=== PATIENT | female | born 1995 | race Hispanic/Latino ===

== ENCOUNTER 2022-07-04 10:11 | Inpatient (IN) | payer BC, OTHER ==
[~2022-07-04 10:11] MED LIST: Bupivacaine 0.25% HCL 30 ML VIAL ONE
[2022-07-04] MEDS ORDERED: Diphenoxylate HCl/Atropine Tablet PO PRN (20:46)
[2022-07-04] MEDS ORDERED: Lidocaine 1% (PF) 30 ML VIAL SC PRN (20:46)
[2022-07-04] MEDS ORDERED: HYDROcodone/Acetaminophen 5/325 mg Tablet PO PRN (20:46)
[2022-07-04] MEDS ORDERED: Methylergonovine 0.2 MG/ML VIAL IM PRN (20:46)
[2022-07-04] MEDS ORDERED: Carboprost 250 MCG/ML AMP IM PRN (20:46)
[2022-07-04] MEDS ORDERED: Butorphanol Tartrate 1 MG/ML VIAL SLOW IVP PRN (20:46)
[2022-07-04] MEDS ORDERED: Acetaminophen 500 MG TAB PO PRN (20:46)
[2022-07-04] MEDS ORDERED: Ibuprofen 800 MG TAB PO PRN (20:46)
[2022-07-04] MEDS ORDERED: hydrALAZINE 20 MG/ML VIAL SLOW IVP PRN (20:46)
[2022-07-04] MEDS ORDERED: Misoprostol 200 MCG TAB PR PRN (20:46)
[2022-07-04] MEDS ORDERED: Ondansetron PF 4 MG/2 ML Vial IVP PRN (20:46)
[2022-07-04] MEDS ORDERED: Penicillin G Potassium 5 MILL.UNITS in Sodium Chloride 0.9% 100 ML IVPB SCH (20:46)
[2022-07-04] MEDS ORDERED: Promethazine HCl 25 MG/ML VIAL IM PRN (20:46)
[2022-07-04 20:48] VITALS: BMI 34.0
[2022-07-04] MEDS ORDERED: NS w/ Oxytocin 30 units 500 ML IV SCH (21:00)
[2022-07-04 22:19] LABS: Mean Corpuscular HGB CONC 35.1 g/dL (32.0-36.0); Mean Corpuscular Hemoglobin 31.7 pg (27.0-33.0); Mean Corpuscular Volume 90.2 fl (81.6-98.3); Mean Platelet Volume 11.2 fl (7.4-10.4); Platelet Count 187 10x3/uL (150-450); RBC Distribution Width 13.4 % (11.5-14.5); Red Blood Cell (RBC) Count 3.47 10x6/uL (3.90-5.03); White Blood Cell (WBC) Count 8.9 10x3/uL (3.5-10.5)
[2022-07-04 22:39] LABS: HBSAg Index 0.21 S/CO (0-0.99); Hep B Surf Ag Non-Reactive S/CO (NonReactive); Syphilis Antibody Nonreactive (Nonreactive); Syphilis Antibody Index 0.05 S/CO (<1.00 Non-Reactive)
[2022-07-04 22:53] LABS: SARS-CoV-2 NAA Rapid Test DETECTED (NotDetected)
[2022-07-05] MEDS: Lactated Ringer's 1,000 ML IV SCH ×2 (01:04→08:28)
[2022-07-05] MEDS: Misoprostol 100 MCG TAB PO SCH (06:07)
[2022-07-05] MEDS: Penicillin G 2.5 MILL.units 2.5 MILL.UNITS in Premix Bag 1 BAG IVPB SCH ×3 (06:07→10:06)
[2022-07-05] MEDS ORDERED: Fentanyl 2 mcg/Bup 0.1% Cadd 100 ML ONE (07:12)
[2022-07-05] MEDS ORDERED: Acetaminophen 325 MG TAB PO PRN (07:52)
[2022-07-05] MEDS ORDERED: Naloxone HCl 0.4 mg/ml Vial IVP PRN ×2 (07:52)
[2022-07-05] MEDS ORDERED: Lactated Ringer's 500 ML IV PRN (07:52)
[2022-07-05] MEDS ORDERED: Moisturizing Cream (Eucerin) 113 GM JAR TOP PRN (07:52)
[2022-07-05] MEDS ORDERED: Ondansetron PF 4 MG/2 ML Vial IVP PRN ×2 (07:52→15:35)
[2022-07-05] MEDS ORDERED: ePHEDrine Sulfate 50 MG/10 ML VIAL SLOW IVP PRN (07:52)
[2022-07-05] MEDS ORDERED: Promethazine HCl 25 MG/ML VIAL IM PRN ×2 (07:52→15:35)
[2022-07-05] MEDS ORDERED: diphenhydrAMINE 50 MG/ML VIAL IVP PRN (07:52)
[2022-07-05] MEDS ORDERED: Fentanyl 2 mcg/Bupivacaine 0.1% Cassette 100 ML EPIDURAL SCH (08:00)
[2022-07-05] MEDS ORDERED: Communication Order-Pharmacy FS SCH (08:00)
[2022-07-05] MEDS ORDERED: diphenhydrAMINE 25 MG CAP PO PRN (15:35)
[2022-07-05] MEDS ORDERED: HYDROcodone/Acetaminophen 5/325 mg Tablet PO PRN (15:35)
[2022-07-05] MEDS ORDERED: NS w/ Oxytocin 30 units 500 ML IV SCH (15:35)
[2022-07-05] MEDS ORDERED: Benzocaine-Menthol 82.5 ML CAN TOP PRN (15:35)
[2022-07-05] MEDS ORDERED: Lanolin Ointment 7 GM TUBE TOP PRN (15:35)
[2022-07-05] MEDS ORDERED: Bisacodyl 10 MG SUPP PR PRN (15:35)
[2022-07-05] MEDS ORDERED: Milk Of Magnesia 30 ML UDCUP PO PRN (15:35)
[2022-07-05] MEDS ORDERED: hydrALAZINE 20 MG/ML VIAL SLOW IVP PRN (15:35)
[2022-07-05] MEDS ORDERED: Ibuprofen 800 MG TAB PO SCH (15:45)
[2022-07-05] MEDS: Ferrous Sulfate 325 MG TAB PO SCH (18:18)
[2022-07-05] MEDS ORDERED: Boostrix 0.5 ML (Tdap) VIAL (>/=7 yrs of age) IM ONE (20:00)
[2022-07-05] MEDS: Docusate 100 MG CAP PO SCH (21:30)
[2022-07-05] MEDS: Ibuprofen 800 MG TAB PO SCH (21:30)
[2022-07-06] MEDS: Ibuprofen 800 MG TAB PO SCH ×2 (06:31→13:35)
[2022-07-06] MEDS: HYDROcodone/Acetaminophen 5/325 mg Tablet PO PRN ×2 (07:48→13:33)
[2022-07-06] MEDS: Docusate 100 MG CAP PO SCH (07:49)
[2022-07-06] MEDS ORDERED: Prenatal Vitamin 1 TAB PO SCH (09:00)
[2022-07-06] MEDS: Ferrous Sulfate 325 MG TAB PO SCH (10:12)
[2022-07-06 10:16] VITALS: BP 111/69; TEMP 98.1
== END 2022-07-06 15:25 | disposition home or self-care (01) | DRG 807 ==
LOC: CSHLD 20:04 → CSHANTE 07-05 15:25
PROVIDERS: ADMIT Family Medicine; ATTEND Family Medicine
PROC: 10E0XZZ Delivery of Products of Conception, External Approach (ICD-10-PCS; principal; 2022-07-05)
DX: O48.0 Post-term pregnancy (principal); Z37.0 Single live birth; O99.824 Streptococcus B carrier state complicating childbirth; Z3A.40 40 weeks gestation of pregnancy
CPT/HCPCS: 36415; 51701; 85027; 86780; 86850; 86900; 86901; 87340; J2540; J2590; J3490; J7120; S0020; U0002